=== PATIENT | female | born 1990 | race Caucasian/White ===

== ENCOUNTER 2019-05-30 15:35 | Emergency (ER) | payer OTHER ==
[~2019-05-30] VITALS: Ht 157.5 cm; Wt 72.7 kg
[2019-05-30 15:44] VITALS: BP 107/68
--- NOTE | 2019-05-30 16:00 | NUR ---
PT AMBULATED TO BED 6, STEADY GAIT.
--- NOTE | 2019-05-30 16:17 | NUR ---
29 Y/F PRESENTS TO ED FOR VAGINAL BLEEDING THAT STARTED AT 1500 TODAY. PT ALSO REPORTS NAUSEA. DENIES ANY ABODMINAL PAIN OR CRAMPING. DENIES DYSURIA, OR FREQUENCY. PT 11 WEEKS . PT REPORTS WHITE VAGINAL DISCHARGE BUT DENIES ITCHING OR BURNING. PT REPORTS THIS IS HER SECOND . [address] LIVING. DENIES ANY ABORTIONS. PMH- DENIES RX- PRENATALS NKDA
--- NOTE | 2019-05-30 16:34 | NUR ---
DR. RODRIGUEZ AT BEDSIDE EVALUATING PT.
[2019-05-30 17:02] LABS: APPEARANCE,URINE CLEAR (CLEAR); BILIRUBIN,URINE 1+ (NEGATIVE); BLOOD, URINE 3+ (NEGATIVE); COLOR,URINE YELLOW (YELLOW); LEUKOCYTE ESTERASE ,URINE NEGATIVE (NEGATIVE); NITRITE, URINE NEGATIVE (NEGATIVE); PH,URINE 5.5 (5.0-9.0); UGLUCOSE NEGATIVE (NEGATIVE)
[2019-05-30 17:07] LABS: RBC,URINE TOO NUMEROUS TO COUN /HPF (0-5); WBC,URINE 0-5 /HPF (0-5)
[2019-05-30 17:38] LABS: BASOPHILS % (AUTO) 0.3 % (0.0-2.0); EOSINOPHILS # (AUTO) 0.1 K/uL (0-0.4); EOSINOPHILS % (AUTO) 0.6 % (0.0-4.0); HEMATOCRIT 38.2 % (36-48); HEMOGLOBIN 13.1 g/dL (12.0-16.0); LYMPHOCYTES # (AUTO) 1.5 K/uL (2.5-16.5); LYMPHOCYTES % (AUTO) 12.2 % (20.5-51.1); MEAN CORPUSCULAR HEMOGLOBIN 30 pg (27-31); MEAN CORPUSCULAR HGB CONC 34 g/dL (33-37); MEAN CORPUSCULAR VOLUME 87.1 fL (80-94); MONOCYTES # (AUTO) 0.7 K/uL (0.8-1.0); MONOCYTES % (AUTO) 5.9 % (1.7-9.3); NEUTROPHILS # (AUTO) 9.9 K/uL (1.8-7.7); PLATELET COUNT (AUTO) 230 K/uL (140-450); RED BLOOD CELL COUNT(AUTO) 4.38 MIL/uL (4.20-5.40); RED CELL DISTRIBUTION WIDTH 13.8 % (11.6-13.7); WHITE BLOOD COUNT (AUTO) 12.2 K/uL (4.8-10.8)
[2019-05-30 17:54] LABS: ANION GAP 9.7 (8-16); CARBON DIOXIDE 28.1 mmol/L (21-32); CREATININE 0.5 mg/dL (0.6-1.3); POTASSIUM 3.8 mmol/L (3.5-5.1)
--- NOTE | 2019-05-30 18:10 | NUR ---
PT CHANGING INTO GOWN FOR PELVIC EXAM TO BE CHAPERONED BY ME ARIANNA YANCEY RN.
--- NOTE | 2019-05-30 18:46 | NUR ---
LAB AT BEDSIDE.
[2019-05-30] MEDS ORDERED: CEPHALEXIN 500 MG CAP PO ONE (18:50)
--- NOTE | 2019-05-30 19:07 | NUR ---
REPORT RECEIVED FROM DAVID KELLER
--- NOTE | 2019-05-30 19:27 | NUR ---
REPORT GIVEN TO MARZENA HERNANDEZ FOR CONTINUITY OF CARE
[2019-05-30 19:54] VITALS: BP 107/68
[2019-06-02 06:20] LABS: CHLAMYDIA TRACHOMATIS AMP DNA Negative (Negative)
== END 2019-05-30 19:47 | disposition home or self-care (01) ==
LOC: MED 15:35
DX: O23.41 Unspecified infection of urinary tract in pregnancy, first trimester (principal); O46.91 Antepartum hemorrhage, unspecified, first trimester; Z88.0 Allergy status to penicillin
CPT/HCPCS: 36415; 76801; 80048; 81001; 81025; 84702; 85025; 86900; 86901; 87210; 87491; 99284; Q0092